=== PATIENT | male | born 2005 | race Caucasian/White ===

== ENCOUNTER 2024-06-21 13:09 | Outpatient (AMB) | payer OTHER, SELFPAY ==
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
[2024-06-21 13:18] VITALS: BP 127/71; PULSE 74; RESP 16; TEMP 37.1; O2SAT 99; BMI 23.8
== END 2024-06-21 13:55 | disposition home or self-care (01) ==
LOC: HO.HMCFM 13:09
PROVIDERS: PCP Nurse Practitioner Family; Visit Provider Nurse Practitioner Family
DX: Z00.00 Encounter for general adult medical examination without abnormal findings (principal)

== ENCOUNTER → 2024-06-21 13:09 | Outpatient (BNVA) | payer OTHER, SELFPAY | PROVIDERS: PCP Nurse Practitioner Family; Visit Provider Nurse Practitioner Family | DX: Z00.00 Encounter for general adult medical examination without abnormal findings (principal) | CPT/HCPCS: 96127; 99385 ==

== ENCOUNTER 2024-06-22 08:42 | Outpatient (REF) | payer OTHER, SELFPAY ==
[2024-06-22 11:02] LABS: MANUAL DIFF FLAG NO
[2024-06-22 11:15] LABS: Basophils Percent Auto 0.3 % (0-2); Eosinophils Absolute Auto 0.1 X10*3/uL (0.0-0.4); Eosinophils Percent Auto 2.3 % (0-4); Hematocrit 43.7 % (42.0-52.0); Hemoglobin 14.9 g/dl (14.0-18.0); Imm Gran Abs Auto 0.02 X10*3/uL (0.00-0.03); Imm Gran Pct Auto 0.3 % (0.0-0.4); Lymphocytes Absolute Auto 2.5 X10*3/uL (1.2-4.9); Lymphocytes Percent Auto 40.4 % (20-40); Mean Corpuscular HGB Conc 34.1 g/dl (31.0-36.0); Mean Corpuscular Hemoglobin 29.4 pg (27.0-33.0); Mean Corpuscular Volume 86.4 fL (80.0-98.0); Monocytes Absolute Auto 0.5 X10*3/uL (0.1-1.2); Neutrophils Percent Auto 48.7 % (45-73); Platelet Count 309 X10*3/uL (160-400); Red Blood Count 5.06 X10*6/uL (4.60-5.80); Red Cell Distribution Width 12.7 % (11.0-16.0); White Blood Count 6.1 X10*3/uL (4.8-10.8)
[2024-06-22 11:21] LABS: Appearance Urine Clear; Color Urine Yellow; Glucose Urine UA Negative (Negative); Leukocyte Esterase Urine Negative (Negative); Nitrite Urine Negative (Negative); Specific Gravity - Urine 1.025 (1.005-1.025); Urine Blood Negative (Negative); Urine Ketones Trace mg/dL (Negative); Urine Protein Negative (Neg-Trace)
[2024-06-22 11:48] LABS: Alanine Aminotransferase 54 U/L (0-40); Albumin Level 4.2 g/dL (3.5-5.0); Alkaline Phosphatase 111 U/L (39-117); Anion Gap 8 (12-20); Aspartate Amino Transferase 32 U/L (5-37); Bilirubin Total 0.4 mg/dL (0.0-1.0); Blood Urea Nitrogen 13 mg/dL (9-16); Calcium 9.5 mg/dL (8.4-10.2); Carbon Dioxide 29 mmol/L (22-29); Chloride 107 mmol/L (96-108); Cholesterol 193 mg/dL (<200); Estimated Glomerular Filt Rate > 60; Glucose Fasting 85 mg/dL (60-99); HDL Cholesterol 53 mg/dL (>40); LDL Cholesterol Calculated 127 mg/dL (<100); Potassium 4.3 mmol/L (3.3-5.1); Sodium 140 mmol/L (135-145); TSH reflex Free T4 0.68 uIU/mL (0.32-4.0); Total Protein 6.8 g/dL (6.5-8.0); Triglycerides 69 mg/dL (<150); Vitamin D 25-OH Total 70.8 ng/mL (>30)
== END 2024-06-22 08:43 | disposition home or self-care (01) ==
LOC: HO.WFDLDS 08:42
PROVIDERS: Visit Provider Nurse Practitioner Family
DX: Z00.00 Encounter for general adult medical examination without abnormal findings (principal)
CPT/HCPCS: 36415; 80053; 80061; 81003; 82306; 84443; 85025

== ENCOUNTER 2024-06-30 12:01 | Outpatient (AMB) | payer OTHER, SELFPAY ==
--- NOTE | 2024-06-30 11:56 | MHC.PC.OV ---
Intake Visit Reasons: Telehealth 1-3 wks labs review Intake Note: Follow up to talk about [facility] form. Cottrell Operator Required: No Allergies No Known Allergies Allergy (Verified 06/30/24 12:05) Tobacco use date assessed: 06/30/24 Dental Screening Dental Screen Date: 06/21/24 HPI HPI Comments History of Present Illness Details 18-year-old male presents for telehealth visit for review of recent lab results. He offers no complaints and denies acute symptoms at this time. Informed that reviewed of paperwork from the [employer] indicates that it was noted that he experienced a seizure, syncope, or any other type of episode of altered consciousness which may interfere with the safe operation of a vehicle. Therefore, further tests and referrals are needed to rule out substance or alcohol abuse and seizure or epilepsy. UTox, blood ethanol, peth tests will be ordered. He will be referred to Neurology for further workup. [facility] Surgical History (Updated 06/21/24 @ 13:24 by Sola Strickland MA) History of surgery on lower extremity Social History Housing: House Patient Tobacco Use Status: Never used Tobacco e-Cigarette/Vaping Use: Never Used Second Hand Smoke Exposure: No service: No Current occupational status: student Cognitive needs: No Hearing needs: No Vision needs: No Questionnaire PHQ-9 Over the last 2 weeks, how often have you been bothered by any of the following problems? 1. Little interest or pleasure in doing things: not at all 2. Feeling down, depressed, or hopeless: not at all 3. Trouble falling or staying asleep, or sleeping too much: not at all 4. Feeling tired or having little energy: not at all 5. Poor appetite or overeating: not at all 6. Feeling bad about yourself - or that you are a failure or have let yourself or your family down: not at all 7. Trouble concentrating on things, such as reading the newspaper or watching television: not at all 8. Moving or speaking so slowly that other people could have noticed. Or the opposite - being so fidgety or restless that you have been moving around a lot more than usual: not at all 9. Thoughts that you would be better off or of hurting yourself in some way: not at all Total score: 0 Depression Screening Interpretation: Negative Depression Screening Done: Yes 82801 - PHQ-9 Billing: Yes Source: Developed by Drs. Jim Frost, Bianca Bhatia, Venkatesh Kaiser and colleagues, with an educational jannette from [employer]. Thrive Questionnaire Date Thrive assessed: 06/21/24 I am a: Patient What is your living situation today?: I have a steady place to live Within the past 12 months, did the food you bought not last and you didn't have the money to get more?: Never true Within the past 12 months, did you worry whether your food would run out before you got money to buy more?: Never true Do you have trouble paying for medicines?: No Do you have trouble getting transportation to medical appointments?: No Do you have trouble paying your heating and electricity bill?: No Do you have trouble taking care of your child, family member or friend?: No Do you have trouble with day-to-day activities such as bathing, preparing meals, shopping, managing finances, etc.?: No Are you currently unemployed and looking for a job?: No Are you interested in more education?: No Please select the resources that you would like help with: None Currently or been in a relationship where the following occur: I choose not to answer THRIVE Score: 0 AUDIT C Alcohol Use Questionnaire (AUDIT-C) 3. How often do you have six or more drinks on one occasion?: Never Total Score: 0 SOTERO-7 AMB Questionnaire SOTERO-7 Date SOTERO - 7 assessed: 06/30/24 Feeling nervous, anxious, or on edge: 0 = Not at all Not being able to stop or control worryin = Not at all Worrying too much about different things: 0 = Not at all Trouble relaxin = Not at all Being so restless that it is hard to sit still: 0 = Not at all Becoming easily annoyed or irritable: 0 = Not at all Feeling afraid as if something awful might happen: 0 = Not at all Total SOTERO-7 score (0-4 normal; 5-9 mild; 10-14 moderate; 15-21 severe): 0 Source: Developed by Drs. Jim Frost, Venkatesh Soto and colleagues, with an educational jannette from [employer]. SOTERO-7 Assessment Billing SOTERO-7 Assessment Tool: SOTERO-7 Assessment 66456 Physical exam (Primary Care) Tobacco/Smoking Status: Tobacco use Status Tobacco use date assessed 06/30/24 06/30/24 12:00 Patient Tobacco Use Status Never used Tobacco 06/30/24 12:00 e-Cigarette/Vaping Use Never Used 06/30/24 12:00 PHQ-9: PHQ-9 Score PHQ-9: Total score 0 06/30/24 12:44 Depression Screening Interpretation: Negative Thrive Assessment: Date of Thrive Assessment Date Thrive assessed 06/21/24 06/30/24 12:00 Currently or been in a relationship where the following occur: I choose not to answer Telehealth Telehealth Telehealth Platform: Telephone Location of provider rendering services: practice address Location of patient: address on file Patient Identification confirmed using: Name, : Yes Telehealth method: voice only Patient verbally consented to treatment: Yes Patient verbally consented to billing insurance company: Yes Patient informed of any privacy concerns related to visit: Yes Coding Level of Care Code Tele Est Pt Level 3 (77696) Diagnoses Elevated LDL cholesterol level E78.00 Elevated ALT measurement R74.01 History of syncope Z87.898 Additional Codes SOTERO-7 Assessment Billing - SOTERO-7 Assessment Tool: SOTERO-7 Assessment 03857 ([id number]) PHQ-9 - 14669 - PHQ-9 Billing: Yes ([id number]) Time Spent (min) 20 Assessment & Plan Assessment & Plan (1) Elevated LDL cholesterol level: Code(s): E78.00 - Pure hypercholesterolemia, unspecified Category: Medical Plan: Recent LDL level is slightly elevated, 127. Advised to limit foods high in saturated fat and avoid foods high in trans fat. Routine exercise encouraged. Fast for 10-12 hours, may drink water, and perform fasting blood work 2-3 days before next visit. Follow-up for telehealth visit for labs review in 2 months. Return sooner with symptoms or concerns. Verbalized understanding and agreed with the plan. (2) Elevated ALT measurement: Code(s): R74.01 - Elevation of levels of liver transaminase levels Category: Medical Plan: Recent ALT level is slightly elevated, 54. Healthy diet, including low-fat encouraged. Encouraged to exercise routinely. Will recheck liver panel in 2 months. Verbalized understanding and agreed with the plan. (3) History of syncope: Code(s): Z87.898 - Personal history of other specified conditions Category: Medical Plan: UTox, DCM, and ethanol, and PEth labs ordered. Referred to [facility]. Orders: Orders Lipid Panel 2 Months E78.00 - Pure hypercholesterolemia, unspecified Liver Panel 2 Months R74.01 - Elevation of levels of liver transaminase levels Drug Screen Urine Today Z87.898 - Personal history of other specified conditions Ethanol Today Z87.898 - Personal history of other specified conditions Other Ref Test - [facility] Today Z87.898 - Personal history of other specified conditions Opiates GCMS Expanded, Ur Today Z87.898 - Personal history of other specified conditions Referrals Neurology Referral Z87.898 - Personal history of other specified conditions
--- OUTSIDE RECORDS SUMMARY | 2024-06-30 13:59 | XMS_ITS | Data Portability ---
Author Organization [place] - [facility], Allergy Address [address] [place] [phone] Care Team Providers Care Sound Equipment Mechanic Name Role Phone DEB DOMINGUEZ Primary Care Provider Assessment Encounter Date Assessment Date Assessment LastModified by Organization Details LastModified Time 06/05/2024 06/05/2024 1. Nasal obstruction 2. Nasal septal deviation 3. Acquired nasal deformity 4. Inferior turbinate hypertrophy Given these findings, we discussed the option of septorhinoplasty with inferior turbinate reduction. History and physical exam confirm the presence of functional nasal obstruction secondary to septal deviation and inferior turbinate hypertrophy. Conservative medical management has failed, and septoplasty alone will not alleviate the obstruction therefore I would proceed with septorhinoplasty with inferior turbinate reduction with possible auricular cartilage grafting and costal cartilage grafting. The nasal obstruction is significant and impacts daily living; there it is medically warranted. We discussed the risks, benefits and alternatives of nasal surgery. The risks include, but are not limited to: bleeding, infection, columellar scar, failure to resolve symptoms, septal perforation, residual external nasal deformity, irregularities in the nasal contour, nasal skin and or teeth numbness and need for further surgery.? ? ? If costal cartilage is required, this would also incur a risk of pneumothorax. The patient understands the risks and benefits of the procedure and would like to proceed. 5. External nasal deformity We also discussed his nasal dorsum - he has a hump with leftward deviaion. Any changes here would be cosmetic in nature. - Quote given today Photo Consent: For clinical purposes, photographs were taken of the patient. Written consent was obtained indicating all photos are to be stored securely, and used and managed by Dr. New. [id number] Not available 06/05/2024 12:37:17 Plan of Treatment Reminders Order Date Submit Date Provider Last Modified By Organization Details Last Modified Time Details Appointments SURGERY 180 2024 11:30A M DAIJA NEW MD Not available Not available Not available Post Op 2024 03:00P M JASMIN RILEY PA-C Not available Not available Not available Lab None recorded. Referral None recorded. Procedures None recorded. Surgeries septorhin oplasty (SURG) 2024 025 [email or web address] Not available 06/05/2024 12:41:02 Imaging None recorded. Medication Orders None recorded. Patient TargetsNo targets recorded. Patient InstructionsNo instructions recorded. Reason for Referral None Reported. Problems Name Problem SNOMED Code Status Onset Date Resolution Date Notes Provider Name and Address Organization Details Recorded Time Deviated nasal septum 008775860 Active 2014 Deviated nasal septum; Note: Date Diagnosed : 01/03/2015 12:56 PM (J34.2) Not Available [facility] 4 03:31:18 Nasal obstructio n 202038230 Active 2024 DAIJA NEW MD [address],[place] [address], [place], [phone] , [facility] 5 12:36:27 Acquired deformity of nose 20218696 Active 2024 DAIJA NEW MD [address] [place] [address],[place] [address], [place], [address] , [facility] 5 12:36:33 Hypertroph y of nasal turbinates 07787454 Active 2024 DAIJA NEW MD [address],[place] [address], [place], [address] , [facility] 5 12:37:06 Problem Notes None recorded. Medical Equipment None Reported. Allergies Allergen ID Allergen Name Allergen Category Reaction Reaction Severity Criticality Documentation Date Start Date Code Code System Note Provider Name and Address Organization Details Recorded Time 035692 Substance with sulfonami de structure and antibacte rial mechanism of action (substanc e) medicatio n other Not available Not available 08/10/2023 86293 8003 SNOMED React ion: unkno wn, unspe cifie d;; Not Available [facility] 01:24:41 Medications Name Sig Start Date Stop Date Status Note LastModified by Organization Details LastModified Time Epi E-Z Pen 0.3 mg/0.3 mL injecti on, auto-in jector Take by injection route. active Not Available Not Available No t Available Vitals Date Recorded Body height Body mass index (BMI) Percentile per age and sex Body weight Provider Name and Address Organization Details Last Updated DateTime 06/05/2024 171.45 cm 54 % 80374.86 g Teresa Murphy [facility] 06/05/2024 09:53:04 Date Recorded Body height Body mass index (BMI) Percentile per age and sex Body mass index (BMI) Body weight Provider Name and Address Organization Details Last Updated DateTime 04/13/2024 171.45 cm 55 % 23.1 kg/m2 34720.86 g Britney Tierney [facility] 04/13/2024 14:58:49 Social History None recorded. Functional Status None recorded. Mental Status None recorded. Family History Nothing Reported. Medical History No medical history recorded. Past Encounters Encounter ID Performer Location Encounter Start Date Encounter Closed Date Diagnosis/Indication Diagnosis SNOMED-CT Code Diagnosis ICD10 Code Diagnosis Note [id number] ALEXSANDRA CLARK MD [facility] [address] [address] 04/13/2024 14:16:44 04/13/2024 15:42:32 Deviated nasal septum 107643145 J34.2 Patient has a severe leftward deviated septum obstructin g most of the airflow on the left side, including a caudal deviation. I think he would benefit from surgical interventi on; I would like him to see one of my plastic surgery colleagues given the extent of the deviation and his history of trauma. All questions answered. [id number] DAIJA NEW MD [facility] [address] [address] 06/05/2024 09:47:35 06/05/2024 15:30:25 Nasal obstruction 685060666 J34.89 Deviated nasal septum 12 3818988 J34.2 Acquired d eformity of nose 07511777 M95.0 Hypertroph y of nasal turbinates 10154617 J34.3 Health Concerns Section Related Observation LastModified by Organization Detai ls LastModified Time None Recorded Concern Status LastModified by Organization Details LastModified Time None Recorded Advance Directives Directive None Recorded Payers Encounter Date Sequence Insurance Name Policy Number Policy Ascencio Covered Member ID Ascencio Member ID Guarantor Name 04/13/2024 1 [facility] [employer] (HMO) [id number] Mary Yevseyeva [id number] Mary Yevseyeva 06/05/2024 1 [facility] [employer] (H[employer]) [id number] Mary Yevseyeva [id number] Mary Yevseyeva Notes Date Note Type Note Provider Name and Address Organization Details Recorded Time 5 text/html 18 yo M presents with trouble breathing through the nose, primarily on the left. No sinus infections, no seasonal allergies Had nasal trauma about 10 years ago, saw , recommended to have evaluation as a teenager. No improvement with medical management. ALEXSANDRA CLARK MD [address] [place] [address], [phone], [facility] - [facility] 04/22/2024 15:19:00 5 text/html On a scale of 1 to 10, with 1 being the worst and 10 being the best, nasal breathing on each side is scored as follows:Right: 8/10Left: /10? ? ?Associated symptoms: mild clear dischargeMedications trialed: prior medications have not workedHistory of seasonal allergies: noHistory of prior nasal trauma: trauma when he was 4History of recurrent, acute, or chronic sinusitis: noHistory of prior nasal surgery: noPrior intranasal drug use: no No smoking vaping or marijuana use.He is bothered by the aesthetics of his nose - the dorsal hump and deviation of the dorsum to the left. DAIJA NEW MD [address] [place] [address],[address], [address], [facility] - [facility] 06/05/2024 12:38:07
--- OUTSIDE RECORDS SUMMARY | 2024-06-30 13:59 | XMS_ITS | Clinical Summary ---
Author Organization [facility] [address] [facility] Building Address [address] [place] [address] Phone Care Team Providers Care Filler Operator Name Role Phone Lary Medina MD Primary Care Provider [phone] Social History Tobacco Use Types Packs/Day Years Used Date Smoking Tobacco: Never Assessed Sex and Gender Information Value Date Recorded Sex Assigned at Not on file Legal Sex Male 1:56 PM EDT Gender Identity Not on file Sexual Orientation Not on file Plan of Treatment Upcoming Encounters Date Type Department Care Team (Late st Contact Info) Description 10/11/2024 9:00 AM EDT Office Visit Internal Medicine - [address] [phone] Lary Medina MD [address] [place] [address] Health Maintenance Due Date Last Done Comments Varicella Vaccines (1 of 2 - 13+ 2-dose series) 2017 HPV Vaccines (1 - Male 3-dos e series) 11/28/2019 Meningococcal B Vacine (1 of 2 - Standard) 2020 COVID-19 Vaccine (1 - 2023-2 5 season) 2023 DTaP,Tdap,and Td Vaccines (1 - Tdap) 11/28/2023 Hepatitis B Vaccines (1 of 3 - 19+ 3-dose series) 11/28/2023 Influenza Vaccine (#1) 2023 Annual Well Child Visit (3-2 1 years old) 06/19/2024 Depression Screening 06/19/2024 HIV Screening 06/19/2024 Hepatitis C Screening 06/19/2024 Social Influencers of Health Screening 06/19/2024 HIB Vaccines Aged Out No longer eligi ble based on patient's age to complete this topic Hepatitis A Vaccines Aged Out No long er eligible based on patient's age to complete this topic IPV Vaccines Aged Out No longer eligi ble based on patient's age to complete this topic MMR Vaccines Aged Out No longer eligi ble based on patient's age to complete this topic Meningococcal ACWY Vaccine Aged Out N o longer eligible based on patient's age to complete this topic Pneumococcal Vaccine: Pediat rics (0 to 5 Years) and At-Risk Patients (6 to 64 Years) Aged Out No longer eligible b ased on patient's age to complete this topic RSV Immunization Patients Un hugh 20 months Aged Out No longer eligible b ased on patient's age to complete this topic Insurance [facility] Care Teams Filler Operator Relationship Specialty Start Date End Date Lary Medina MD [address] [place] [phone] PCP - General Internal Medicine 06/19/24
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
--- OUTSIDE RECORDS SUMMARY | 2024-06-30 13:59 | XMS_ITS | Encounter Summary ---
Author Organization [facility] Address [address] [place] [address] Phone Care Team Providers Care Sample Checker Name Role Phone Jim Paul MD Primary Care Provider [phone] Encounter Details Date Type Department Care Team (Late st Contact Info) Description 08/15/2017 Conversion Encounter [facility] [address] [place] [address] Jim Paul MD [address] [place] [address] Social History Tobacco Use Types Packs/Day Years Used Date Smoking Tobacco: Never Assessed Sex and Gender Information Value Date Recorded Sex Assigned at Not on file Legal Sex Male 6:10 PM EDT Gender Identity Not on file Sexual Orientation Not on file documented as of this encounter Plan of Treatment Not on file documented as of this encounter Visit Diagnoses Not on filedocumented in this encounter Care Teams Sample Checker Relationship Specialty Start Date End Date Jim Paul MD [address] [place] [address] PCP - General 08/04/17 06/20/24 documented as of this encounter
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
== END 2024-06-30 16:06 | disposition home or self-care (01) ==
LOC: HO.HMCFM 12:01
PROVIDERS: PCP Nurse Practitioner Family; Visit Provider Nurse Practitioner Family
DX: E78.00 Pure hypercholesterolemia, unspecified (principal); R74.01 Elevation of levels of liver transaminase levels; Z87.898 Personal history of other specified conditions

== ENCOUNTER → 2024-06-30 12:01 | Outpatient (BNVA) | payer OTHER, SELFPAY | PROVIDERS: PCP Nurse Practitioner Family; Visit Provider Nurse Practitioner Family | DX: E78.00 Pure hypercholesterolemia, unspecified (principal); R74.01 Elevation of levels of liver transaminase levels; Z87.898 Personal history of other specified conditions | CPT/HCPCS: 96127 ==

== ENCOUNTER 2024-07-07 09:10 | Outpatient (REF) | payer OTHER, SELFPAY ==
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
--- OUTSIDE RECORDS SUMMARY | 2024-07-07 09:30 | XMS_ITS | Clinical Summary ---
Author Organization [facility] [address] [facility] Building Address [address] [place] [address] Phone Care Team Providers Care Speech And Hearing Director Name Role Phone Lary Medina MD Primary Care Provider [phone] Social History Tobacco Use Types Packs/Day Years [...] AM EDT Office Visit Internal Medicine - [address] [phone] Lary Medina MD [address] [place] [address] Health Maintenance Due Date Last Done Comments Varicella Vaccines (1 of 2 - 13+ 2-dose series) 2017 HPV Vaccines (1 - Male 3-dos e series) 11/28/2019 Meningococcal B Vaccine (1 o f 2 - Standard) 2020 COVID-19 Vaccine (1 [...] patient's age to complete this topic Insurance [facility] [place] [address] Care Teams Speech And Hearing Director Relationship Specialty Start Date End Date Lary Medina MD [address] [place] [phone] PCP - General Internal Medicine 06/19/24
--- OUTSIDE RECORDS SUMMARY | 2024-07-07 09:30 | XMS_ITS | Data Portability ---
Author Organization [place] [facility], Allergy Address [address] [place] [phone] Care Team Providers Care Analytics Analyst Name Role Phone DEB DOMINGUEZ Primary Care [...] and used and managed by Dr. New. [phone] Not available 06/05/2024 12:37:17 Plan of Treatment [...] Organization Details Recorded Time Deviated nasal septum 063629539 Active 2014 Deviated nasal septum; Note: Date Diagnosed : 01/03/2015 12:56 PM (J34.2) Not Available [facility] 4 03:31:18 Nasal obstructio n 896469359 Active 2024 DAIJA NEW MD [address] [facility],[place] [address], [place], [phone] , [facility] 5 12:36:27 Acquired deformity of nose 90413998 Active 2024 DAIJA NEW MD [address] [place] [address],[place] [address], [place], [address] , [facility] 5 12:36:33 Hypertroph y of nasal turbinates 41679018 Active 2024 DAIJA NEW MD [address] [facility],[place] [address], [place], [phone] , [facility] 5 12:37:06 Problem Notes None recorded. Medical Equipment None Reported. Allergies Allergen ID Allergen Name Allergen Category Reaction Reaction Severity Criticality Documentation Date Start Date Code Code System Note Provider Name and Address Organization Details Recorded Time 580783 Substance with sulfonami de structure and antibacte rial mechanism of action (substanc e) medicatio n other Not available Not available 08/10/2023 39116 8003 SNOMED React ion: unkno wn, unspe [...] Updated DateTime 06/05/2024 171.45 cm 54 % 73934.86 g Teresa Murphy [facility] 06/05/2024 09:53:04 Date Recorded Body height Body mass index (BMI) Percentile per age and sex Body mass index (BMI) Body weight Provider Name and Address Organization Details Last Updated DateTime 04/13/2024 171.45 cm 55 % 23.1 kg/m2 37809.86 g Britney Tierney [facility] 04/13/2024 14:58:49 Social History None recorded. Functional Status None recorded. Mental Status None recorded. Family History Nothing Reported. Medical History No medical history recorded. Past Encounters Encounter ID Performer Location Encounter Start Date Encounter Closed Date Diagnosis/Indication Diagnosis SNOMED-CT Code Diagnosis ICD10 Code Diagnosis Note [id number] ALEXSANDRA CLARK MD [facility] [address] [address] 04/13/2024 14:16:44 04/13/2024 15:42:32 Deviated nasal septum 989456037 J34.2 Patient has a severe leftward deviated septum obstructin g most of the airflow on the left side, including a caudal deviation. I think he would benefit from surgical interventi on; I would like him to see one of my plastic surgery colleagues given the extent of the deviation and his history of trauma. All questions answered. [id number] DAIJA NEW MD [facility] [address] [address] 06/05/2024 09:47:35 06/05/2024 15:30:25 Nasal obstruction 337502611 J34.89 Deviated nasal septum 12 5122470 J34.2 Acquired d eformity of nose 55825024 M95.0 Hypertroph y of nasal turbinates 25876088 J34.3 Health Concerns Section Related Observation LastModified by Organization Detai ls LastModified Time None Recorded Concern Status LastModified by Organization Details LastModified Time None Recorded Advance Directives Directive None Recorded Payers Encounter Date Sequence Insurance Name Policy Number Policy Ascencio Covered Member ID Ascencio Member ID Guarantor Name 04/13/2024 1 [facility] (HMO) [id number] Mary Yevseyeva [id number] Mary Yevseyeva 06/05/2024 1 [facility] (HMO) [id number] Mary Yevseyeva [id number] Mary Yevseyeva Notes Date Note Type Note Provider Name and Address Organization Details Recorded Time 5 text/html 18 yo M presents with trouble breathing through the nose, primarily on the left. No sinus infections, no seasonal allergies Had nasal trauma about 10 years ago, saw , recommended to have evaluation as a teenager. No improvement with medical management. ALEXSANDRA CLARK MD [address] [place] [address], [phone], [facility] - [facility] 04/22/2024 15:19:00 5 text/html On a [...] dorsum to the left. DAIJA NEW MD [address] [place] [address],[address], [phone], [facility] - [facility] 06/05/2024 12:38:07
--- OUTSIDE RECORDS SUMMARY | 2024-07-07 09:30 | XMS_ITS | Encounter Summary ---
Author Organization [facility] Address [address] [place] [address] Phone Care Team Providers Care Certified Massage Therapist Name Role Phone Jim Paul MD Primary Care Provider [phone] Reason for Visit * Reason Onset Date Comments see note 06/08/2024 appt made 06/08/2024 Encounter Details Date Type Department Care Team (Late st Contact Info) Description 06/08/2024 Telephone [facility] [address] [phone] Ailyn White LPN [address] [place], [place] [phone] see note ; appt made Social History [...] Patient will be in the office to cloth picker medical release to transfer to a new [...] insurances that we take, [employer] Complete, [place], [place], [employer], and [employer]. If he can change [...] Discussed that he may need to yany sheet rock hanger to be cleared but not sure what [...] on filedocumented in this encounter Care Teams Certified Massage Therapist Relationship Specialty Start Date End Date Jim Paul MD [address] [place] [address] PCP - General 08/04/17 06/20/24 documented as of this encounter
--- OUTSIDE RECORDS SUMMARY | 2024-07-07 09:30 | XMS_ITS | Encounter Summary ---
Author Organization [facility] Address [address] [place] [address] Phone Care Team Providers Care Moto Mix Operator Name Role Phone Jim Paul MD Primary Care Provider [phone] Encounter Details Date Type Department Care Team (Late st Contact Info) Description 08/15/2017 Conversion Encounter [facility] [address] [place] [address] Jim Paul MD [address] [place] [address] Social History Tobacco Use Types Packs/Day Years [...] on filedocumented in this encounter Care Teams Moto Mix Operator Relationship Specialty Start Date End Date Jim Paul MD [address] [place] [address] PCP - General 08/04/17 06/20/24 documented as of this encounter
[2024-07-07 11:54] LABS: Ethanol < 10 mg/dL
[2024-07-07 12:10] LABS: Amphetamine Screen Urine Not Detected (Not Detect); Barbiturates, Urine Not Detected (Not Detect); Benzodiazepines Screen Urine Not Detected (Not Detect); Buprenorphine Scr Not Detected (Not Detect); Cannabinoid Screen Urine Not Detected (Not Detect); Cocaine Screen Urine Not Detected (Not Detect); Fentanyl, urine Not Detected (Not Detect); Methadone Screen, Urine Not Detected (Not Detect); Opiate Screen Urine Not Detected (Not Detect); Oxycodone Screen Urine Not Detected (Not Detect); Phencyclidine Screen Urine Not Detected (Not Detect)
[2024-07-10 10:56] LABS: Codeine, Ur NEGATIVE; Hydrocodone, Ur NEGATIVE; Hydromorphone, Ur NEGATIVE; Morphine, Ur NEGATIVE; Norhydrocodone, Ur NEGATIVE; Noroxycodone, Ur NEGATIVE; Oxycodone, Ur NEGATIVE; Oxymorphone, Ur NEGATIVE
[2024-07-13 11:44] LABS: Phosphatidylethanol 16:0-18:1 NEGATIVE; Phosphatidylethanol 16:0-18:2 NEGATIVE
== END 2024-07-07 09:11 | disposition home or self-care (01) ==
LOC: HO.WFDLDS 09:10
PROVIDERS: Visit Provider Nurse Practitioner Family
DX: Z87.898 Personal history of other specified conditions (principal)
CPT/HCPCS: 80307; 80321; 80365; G0480

== ENCOUNTER 2024-11-29 08:22 | Outpatient (AMB) | payer OTHER, SELFPAY ==
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
[2024-11-29 08:27] VITALS: BP 128/80; PULSE 88; O2SAT 100; BMI 23.2
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
--- OUTSIDE RECORDS SUMMARY | 2024-11-29 08:49 | XMS_ITS | Encounter Summary ---
Author Organization [facility] Address [address] [place] [address] Phone Care Team Providers Care Camp Nurse Name Role Phone Jim Paul MD Primary Care Provider [phone] Encounter Details Date Type Department Care Team (Late st Contact Info) Description 08/15/2017 Conversion [facility]counter [facility] [address] [place] [address] Jim Paul MD [address] [place] [address] Social History Tobacco Use Types Packs/Day Years [...] on filedocumented in this encounter Care Teams Camp Nurse Relationship Specialty Start Date End Date Jim Paul MD [address] [place] [address] PCP - General 08/04/17 06/20/24 documented as of this encounter
== END 2024-11-29 09:11 | disposition home or self-care (01) ==
LOC: HO.HSMS 08:23
PROVIDERS: PCP Nurse Practitioner Family; Visit Provider Psychiatry & Neurology Neurology
DX: Z71.1 Person with feared health complaint in whom no diagnosis is made (principal)
CPT/HCPCS: 99204

== ENCOUNTER → 2024-11-29 08:22 | Outpatient (BNVA) | payer OTHER, SELFPAY | PROVIDERS: PCP Nurse Practitioner Family; Visit Provider Psychiatry & Neurology Neurology | DX: Z13.850 Encounter for screening for traumatic brain injury (principal) | CPT/HCPCS: 99202 ==

== ENCOUNTER 2024-12-27 08:18 | Outpatient (REF) | payer OTHER, SELFPAY ==
--- OUTSIDE RECORDS SUMMARY | 2024-12-27 08:46 | XMS_ITS | Encounter Summary ---
Author Organization [facility] Address [address] [place] [address] Phone Care Team Providers Care Marriage Performer Name Role Phone Jim Paul MD Primary Care Provider [phone] Encounter Details Date Type Department Care Team (Late st Contact Info) Description 08/15/2017 Conversion Encounter [facility] [address] [place] [address] Jim Paul MD [address] [place] [address] Social History Tobacco Use Types Packs/Day Years [...] on filedocumented in this encounter Care Teams Marriage Performer Relationship Specialty Start Date End Date Jim Paul MD [address] [place] [address] PCP - General 08/04/17 06/20/24 documented as of this encounter
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
== END 2024-12-27 08:19 | disposition home or self-care (01) ==
LOC: HO.NEURO 08:18
PROVIDERS: PCP Nurse Practitioner Family; Visit Provider Psychiatry & Neurology Neurology
DX: Z87.898 Personal history of other specified conditions (principal)
CPT/HCPCS: 95816

== ENCOUNTER → 2024-12-27 09:27 | Outpatient (BNV) | payer OTHER, SELFPAY | PROVIDERS: PCP Nurse Practitioner Family; Visit Provider Psychiatry & Neurology Neurology | DX: Z76.5 Malingerer [conscious simulation] (principal) | CPT/HCPCS: 95816 ==

== ENCOUNTER 2025-02-14 15:29 | Outpatient (AMB) | payer OTHER, SELFPAY ==
[2025-02-14 15:30] VITALS: BP 122/78; PULSE 96; O2SAT 99; BMI 24.9
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
--- OUTSIDE RECORDS SUMMARY | 2025-02-15 04:02 | XMS_ITS | Continuity of Care Document ---
Author Organization [place] - [facility], [facility] Address [address] [place] [address] Care Team Providers Care Sports Team Manager Name Role Phone DEB DOMINGUEZ Primary Care Provider [phone] Assessment Encounter Date Assessment Date Assessment LastModified by Organization Details LastModified Time 11/20/2024 11/20/2024 18 year old male , s/p septorhinoplasty with inferior turbinate reduction performed 11/01/[address] New, presents for reevaluation of epistaxis. Patient had a left Rhino Rocket placed at [facility] ED on 11/04/24 for severe epistaxis, which was removed in the office at the previous visit. Septum and bilateral turbinates appear to be healing well overall. No evidence of active epistaxis or septal hematoma. Recommend continued use of daily saline irrigation to promote healing and keep the nasal mucosa moist. Follow up with Dr. New for routine postoperative assessment. Otherwise, I would be happy to see him in the interim for any new or worsening concerns. All questions were answered. [email or web address] Not available 11/20/2024 17:49:27 Plan of Treatment Reminders Order Date Submit Date Provider Last Modified By Organization Details Last Modified Time Details Appointments Establish ed 20 2025 08:40A M DAIJA NEW MD Not available Not available Not available Lab None recorded. Referral None recorded. Procedures None recorded. Surgeries None recorded. Imaging None recorded. Medication Orders None recorded. Patient TargetsNo targets recorded. Patient InstructionsNo instructions recorded. Reason for Referral None Reported. Problems Name Problem SNOMED Code Status Onset Date Resolution Date Notes Provider Name and Address Organization Details Recorded Time Deviated nasal septum 079282116 Active 2014 Deviated nasal septum; Note: Date Diagnosed : 01/03/2015 12:56 PM (J34.2) Not Available [facility] 4 03:31:18 Nasal obstructio n 085664456 Active 2024 DAIJA NEW MD [address], [place], [address] , [facility] - [facility] 16:24:21 Acquired deformity of nose 19957744 Active 2024 DAIJA NEW MD [address], [place], [address] , [facility] [place] 12:36:33 Hypertroph y of nasal turbinates 14122562 Active 2024 DAIJA NEW MD [address], [place], [address] , [facility] [place] 12:37:06 Bleeding from nose 953029807 Active 2024 ALBER BARR [address], [place], [address] , [facility] 17:49:44 Problem Notes None recorded. Procedures Surgical History Date Name Laterality Status Provider Name and Address Organization Details Recorded Time 11/07/19 25 JMSNasal/Sinus Endoscopy-DEBRIDEME NT completed ALBER BARR [address] [facility], [place], [address], [facility] 11/06/2024 17:06:00 11/02/19 25 rhinoseptoplasty completed DAIJA NEW MD [address], [place], [address], [facility] 11/01/2024 07:16:22 Imaging Results None recorded. Procedure Notes None recorded. Medical Equipment None Reported. Allergies Allergen ID Allergen Name Allergen Category Reaction Reaction Severity Criticality Documentation Date Start Date Code Code System Note Provider Name and Address Organization Details Recorded Time 457939 Substance with sulfonami de structure and antibacte rial mechanism of action (substanc e) medicatio n other Not available Not available 08/10/2023 50760 8003 SNOMED React ion: unkno wn, unspe cifie d;; Not Available [facility] 01:24:41 Medications Name Sig Start Date Stop Date Status Note LastModified by Organization Details LastModified Time Nasal Dennison (oxymetazol ine) 0.05 % SPRAY 2 SPRAYS NEEDED BY INTRANASA L ROUTE FOR 3 DAYS, FOR NASAL BLEEDING. active Not Available Not Available No t Available ibuprofen 800 mg tablet Take 1 tablet every 6 hours by oral route for 7 days, for postop pain. 11/15 completed Not Available Not Available Not Available Medrol (Alberto) 4 mg tablets in a dose pack Take 1 dose pk by oral route for 5 days, for swelling as prescribe d. 11/13 completed Not Available Not Available Not Available bacitracin 500 unit/gram topical ointment APPLY 1 APPLICATI ON 3 TIMES A DAY BY TOPICAL ROUTE, FOR TO YOUR NASAL INCISION. active Not Available Not Available No t Available Epi E-Z Pen 0.3 mg/0.3 mL injection, auto-inject or Take by injection route. active Not Available Not Available No t Available acetaminoph en 500 mg tablet TAKE 2 TABLETS BY MOUTH EVERY 6 HOURS active Not Available Not Available No t Available cephalexin 500 mg tablet Take 1 tablet twice a day by oral route for 7 days. 11/15 completed Not Available Not Available Not Available oxycodone 5 mg tablet Take 1 tablet every 4 hours by oral route as needed for 7 days, for as needed for break through pain. 11/15 completed Not Available Not Available Not Available Saline Nasal 0.65 % spray aerosol TAKE 2 SPRAYS 4 TIMES A DAY BY NASAL ROUTE FOR 7 DAYS. active Not Available Not Available No t Available Vitals Date Recorded Body height Body mass index (BMI) Body mass index (BMI) [Percentile] Per age and sex Body weight Provider Name and Address Organization Details Last Updated DateTime 11/20/2024 171.45 cm 23.1 kg/m2 51 % 20155.86 g Rosalie Woodward [place] - [facility] 11/20/2024 10:30:36 Social History None recorded. Functional Status None recorded. Mental Status None recorded. Family History Nothing Reported. Medical History No medical history recorded. Past Encounters Encounter ID Performer Location Encounter Start Date Encounter Closed Date Diagnosis/Indication Diagnosis SNOMED-CT Code Diagnosis ICD10 Code Diagnosis IMO Codes Diagnosis Note [id number] ALBER BARR [facility] of [address] [address] 11/06/2024 14:30:58 11/06/2024 16:03:18 Deviated nasal septum 207530475 J34.2 Hypertroph y of nasal turbinates 67950699 J34.3 Acquired d eformity of nose 10958079 M95.0 Nasal obstruction 242230 000 J34.89 [id number] ALBER BARR [facility] of [address] [address] 11/20/2024 10:05:23 11/20/2024 10:59:10 Deviated nasal septum 018068521 J34.2 Hypertroph y of nasal turbinates 44255814 J34.3 Acquired d eformity of nose 33218856 M95.0 Nasal obstruction 213064 000 J34.89 Bleeding from nose 76282 6005 R04.0 2558 Resolved. Health Concerns Section Related Observation LastModified by Organization Detai ls LastModified Time None Recorded Concern Status LastModified by Organization Details LastModified Time None Recorded Payers Encounter Date Sequence Insurance Name Policy Number Policy Ascencio Covered Member ID Ascencio Member ID Guarantor Name 11/20/2024 1 [facility] (O) [id number] Mary Robert [id number] Mary Robert Notes Date Note Type Note Provider Name and Address Organization Details Recorded Time 11/20/2024 text/html ROS as noted in the HPI 18 year old male, s/p septorhinoplasty with inferior turbinate reduction performed 11/01/[address] New, presents for reevaluation of epistaxis. Patient had a left Rhino Rocket placed at [facility] ED on 11/04/24 for severe epistaxis, which was removed in the office at the previous visit. He has not had any recurrent nosebleeds since then, but reports slightly reduced airflow through the right nostril. ZENAIDA GOMEZ MD [address] [place] [address], [phone], [facility] - [facility] 11/21/2024 07:58:12
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
--- OUTSIDE RECORDS SUMMARY | 2025-02-15 04:02 | XMS_ITS | Encounter Summary ---
Author Organization [facility] Address [address] [place] [address] Phone Care Team Providers Care Environmental Sampling Technician Name Role Phone Jim Paul MD Primary Care Provider [phone] Encounter Details Date Type Department Care Team (Late st Contact Info) Description 08/15/2017 Conversion Encounter [facility] [address] [place] [address] Jim Paul MD [address] [place] [address] Social History Tobacco Use Types Packs/Day Years [...] on filedocumented in this encounter Care Teams Environmental Sampling Technician Relationship Specialty Start Date End Date Jim Paul MD [address] [place] [address] PCP - General 08/04/17 06/20/24 documented as of this encounter
--- OUTSIDE RECORDS SUMMARY | 2025-02-15 04:02 | XMS_ITS | Continuity of Care Document ---
Author Organization [place] - [facility], [facility] Address [address] [place] [address] Care Team Providers Care Template Clerk Name Role Phone DEB DOMINGUEZ Primary Care Provider [phone] Assessment Encounter Date Assessment Date Assessment LastModified by Organization Details LastModified Time 11/30/2024 11/30/2024 s/p septorhinoplasty with turbinate reduction on 11/01/24 Postop day 4 - had bleeding requiring rhinorocket placement this was removed no additional bleeding Reports improvement in his breathing FU 6mo Not available 11/30/2024 16:24:19 Plan of Treatment Reminders Order Date Submit Date Provider Last Modified By Organization Details Last Modified Time Details Appointments Establish ed 20 2025 08:40A M DAIJA GALINDO MD Not available Not available Not available Lab None recorded. Referral None recorded. Procedures None recorded. Surgeries None recorded. Imaging None recorded. Medication Orders None recorded. Patient TargetsNo targets recorded. Patient InstructionsNo instructions recorded. Reason for Referral None Reported. Problems Name Problem SNOMED Code Status Onset Date Resolution Date Notes Provider Name and Address Organization Details Recorded Time Deviated nasal septum 673209731 Active 2014 Deviated nasal septum; Note: Date Diagnosed : 01/03/2015 12:56 PM (J34.2) Not Available [facility] 4 03:31:18 Nasal obstructio n 757218070 Active 2024 DAIJA GALINDO MD [address] [place] [address], [facility] [place], [address] , [place] - [facility] 16:24:21 Acquired deformity of nose 48552619 Active 2024 DAIJA GALINDO MD [address] [place],[address] [facility], [place], [address] , [facility] [place] 12:36:33 Hypertroph y of nasal turbinates 56664325 Active 2024 DAIJA GALINDO MD [address] [facility] [place] [address], [place], [address] , [facility] [place] 12:37:06 Bleeding from nose 182608826 Active 2024 ALBRE BARR [address] [facility] [place] [address], [place], [address] , [facility] [place] 17:49:44 Problem Notes None recorded. Procedures Surgical History Date Name Laterality Status Provider Name and Address Organization Details Recorded Time 11/07/19 25 JMSNasal/Sinus Endoscopy-DEBRIDEME NT completed ALBER BARR [address] [facility] [place] [address], [place], [address], [facility] [place] 11/06/2024 17:06:00 11/02/19 rhinoseptoplasty completed DAIJA GALINDO MD [address] [facility] [place] [address], [place], [address], [facility] 11/01/2024 07:16:22 Imaging Results None recorded. Procedure Notes None recorded. Medical Equipment None Reported. Allergies Allergen ID Allergen Name Allergen Category Reaction Reaction Severity Criticality Documentation Date Start Date Code Code System Note Provider Name and Address Organization Details Recorded Time 936538 Substance with sulfonami de structure and antibacte rial mechanism of action (substanc e) medicatio n other Not available Not available 08/10/2023 89324 8003 SNOMED React ion: unkno wn, unspe cifie d;; Not Available [facility] 4 01:24:41 Medications Name Sig Start Date Stop Date Status Note LastModified by Organization Details LastModified Time Nasal [place] (oxymetazol ine) 0.05 % SPRAY 2 SPRAYS [...] Available Not Available No t Available Vitals None Recorded Social History None recorded. Functional Status None recorded. Mental Status None recorded. Family History Nothing Reported. Medical History No medical history recorded. Past Encounters Encounter ID Performer Location Encounter Start Date Encounter Closed Date Diagnosis/Indication Diagnosis SNOMED-CT Code Diagnosis ICD10 Code Diagnosis IMO Codes Diagnosis Note [id number] ALBER BARR [facility] of [address] [address] 11/06/2024 14:30:58 11/06/2024 16:03:18 Deviated nasal septum 831568072 J34.2 Hypertroph y of nasal turbinates 99408665 J34.3 Acquired d eformity of nose 97822256 M95.0 Nasal obstruction 633662 000 J34.89 [id number] ALBER BARR [facility] of [address] [place] [address] 11/20/2024 10:05:23 11/20/2024 10:59:10 Deviated nasal septum 348778450 J34.2 Hypertroph y of nasal turbinates 33356655 J34.3 Acquired d eformity of nose 85943850 M95.0 Nasal obstruction 211026 000 J34.89 Bleeding from nose 53519 6005 R04.0 2558 Resolved. [id number] DAIJA GALINDO MD [facility] [address] [address] 11/30/2024 15:52:07 11/30/2024 16:07:31 Nasal obstruction 805851914 J34.89 27272 Health Concerns Section Related Observation LastModified by Organization Detai ls LastModified Time None Recorded Concern Status LastModified by Organization Details LastModified Time None Recorded Payers Encounter Date Sequence Insurance Name Policy Number Policy Ascencio Covered Member ID Ascencio Member ID Guarantor Name 11/30/2024 1 [facility] (O) [id number] Mary Quoceva [id number] Mary Yevseyeva Notes Date Note Type Note Provider Name and Address Organization Details Recorded Time 11/30/2024 text/html ROS as noted in the HPI s/p septorhinoplasty with turbinate reduction on 11/01/24Postop day 4 - had bleeding requiring rhinorocket placementthis was removedno additional bleeding Reports improvement in his breathing DAIJA GALINDO MD [address] [place] [address], [address], [facility] - [facility] 11/30/2024 16:24:30
--- OUTSIDE RECORDS SUMMARY | 2025-02-15 04:02 | XMS_ITS | Data Portability ---
Author Organization [place] - [facility], Allergy Address [address] [place] [address] Care Team Providers Care Audit Director Name Role Phone ANGELICA DEB Primary Care Provider Assessment Encounter Date Assessment [...] or teeth numbness and need for further surgery. If costal cartilage is required, this would [...] securely, and used and managed by Dr. Galindo. [id number], [id number] Not available 06/05/2024 12:37:17 11/06/2024 11/06/2024 18 year old male , s/p septorhinoplasty with inferior turbinate reduction performed 11/01/[address] Galindo, presents with his mother for left nasal packing removal. Nasal packing was softened with topical lidocaine/oxymetaz oline before being deflated and evacuated from the left naris. Patient tolerated the procedure well. No evidence of a septal hematoma. Right nasal splint was partially intact and also removed without difficulty. The nasal cavities were debrided using suction via rigid nasal endoscopy. Left nasal splint is confirmed to be absent. Dorsal splint was additionally removed. Septum and bilateral turbinates appear to be generally healing well. He may begin daily saline irrigation starting today. Will plan to see him back in 2 weeks for reassessment. All questions were answered. Patient also seen and evaluated by Dr. Delgado who agrees with this plan. Not available 11/06/2024 17:08:13 11/20/2024 11/20/2024 18 year old male , s/p septorhinoplasty with inferior turbinate reduction performed 11/01/[address] Galindo, presents for reevaluation of epistaxis. Patient had a left Rhino Rocket placed at [facility] ED on 11/04/24 for severe epistaxis, which was removed in the office at the previous visit. Septum and bilateral turbinates appear to be healing well overall. No evidence of active epistaxis or septal hematoma. Recommend continued use of daily saline irrigation to promote healing and keep the nasal mucosa moist. Follow up with Dr. Galindo for routine postoperative assessment. Otherwise, I would be happy to see him in the interim for any new or worsening concerns. All questions were answered. Not available 11/20/2024 17:49:27 11/30/2024 11/30/2024 s/p septorhinoplasty with turbinate reduction [...] Organization Details Recorded Time Deviated nasal septum 437165224 Active 2014 Deviated nasal septum; Note: Date Diagnosed : 01/03/2015 12:56 PM (J34.2) Not Available [facility] 4 03:31:18 Nasal obstructio n 010378644 Active 2024 DAIJA GALINDO MD [address] [facility] [place] [address], [place], [address] , [facility] - [facility] 5 16:24:21 Acquired deformity of nose 78685789 Active 2024 DAIJA GALINDO MD [address] [place], [place] [address]on [place] [address], [place], [address] , [facility] 5 12:36:33 Hypertroph y of nasal turbinates 50098632 Active 2024 DAIJA GALINDO MD [address] [facility] [place] [address], [place], [address] , [facility] - [facility] 5 12:37:06 Bleeding from nose 122480354 Active 2024 ALBER BARR [address] [place], [place] [address]on [place],[facility], [place], [address] , [facility] - [facility] 5 17:49:44 Problem Notes None recorded. Procedures Surgical History Date Name Laterality Status Provider Name and Address Organization Details Recorded Time 11/07/19 25 JMSNasal/Sinus Endoscopy-DEBRIDEME NT completed ALBER BARR [address] [place], [place] [address]on [place],[facility], [place] , [place], [address], [place] - [facility] 11/06/2024 17:06:00 11/02/19 25 rhinoseptoplasty completed DAIJA GALINDO MD [address] [place] [address], [place], [address], [place] - [facility] 11/01/2024 07:16:22 Imaging Results None recorded. Procedure Notes None recorded. Medical Equipment None Reported. Allergies Allergen ID Allergen Name Allergen Category Reaction Reaction Severity Criticality Documentation Date Start Date Code Code System Note Provider Name and Address Organization Details Recorded Time 502956 Substance with sulfonami de structure and antibacte rial mechanism of action (substanc e) medicatio n other Not available Not available 08/10/2023 58281 8003 SNOMED React ion: unkno wn, unspe cifie d;; Not Available [facility] 4 01:24:41 Medications Name Sig Start Date Stop Date Status Note LastModified by Organization Details LastModified Time Nasal [place] (oxymetazol ine) 0.05 % SPRAY 2 SPRAYS [...] Recorded Body height Body mass index (BMI) [Percentile] Per age and sex Body mass index (BMI) Body weight Provider Name and Address Organization Details Last Updated DateTime 04/13/2024 171.45 cm 55 % 23.1 kg/m2 36766.86 g Britney Niall [facility] 04/13/2024 14:58:49 Date Recorded Body height Body mass index (BMI) [Percentile] Per age and sex Body weight Provider Name and Address Organization Details Last Updated DateTime 06/05/2024 171.45 cm 54 % 40062.86 g Teresa Murphy [facility] 06/05/2024 09:53:04 Date Recorded Body height Body mass index (BMI) [Percentile] Per age and sex Body mass index (BMI) Body weight Provider Name and Address Organization Details Last Updated DateTime 11/06/2024 171.45 cm 51 % 23.1 kg/m2 85374.86 g Rosalie Woodward [facility] 11/06/2024 14:57:34 Date Recorded Body height Body mass index (BMI) Body mass index (BMI) [Percentile] Per age and sex Body weight Provider Name and Address Organization Details Last Updated DateTime 11/20/2024 171.45 cm 23.1 kg/m2 51 % 00147.86 g Rosalie Woodward [facility] 11/20/2024 10:30:36 Social History None recorded. Functional Status None recorded. Mental Status None recorded. Family History Nothing Reported. Medical History No medical history recorded. Past Encounters Encounter ID Performer Location Encounter Start Date Encounter Closed Date Diagnosis/Indication Diagnosis SNOMED-CT Code Diagnosis ICD10 Code Diagnosis IMO Codes Diagnosis Note [id number] ALEXSANDRA CLARK MD [facility] [address] [address] 04/13/2024 14:16:44 04/13/2024 15:42:32 Deviated nasal septum 426932035 J34.2 Patient has a severe leftward deviated septum obstructin g most of the airflow on the left side, including a caudal deviation. I think he would benefit from surgical interventi on; I would like him to see one of my plastic surgery colleagues given the extent of the deviation and his history of trauma. All questions answered. [id number] DAIJA GALINDO MD [facility] [address] [address] 06/05/2024 09:47:35 06/05/2024 15:30:25 Nasal obstruction 507246264 J34.89 Deviated nasal septum 12 9552155 J34.2 Acquired d eformity of nose 86717108 M95.0 Hypertroph y of nasal turbinates 15177631 J34.3 [id number] ALBER BARR [facility] [address] [address] 11/06/2024 14:30:58 11/06/2024 16:03:18 Deviated nasal septum 460926201 J34.2 Hypertroph y of nasal turbinates 14022241 J34.3 Acquired d eformity of nose 51930306 M95.0 Nasal obstruction 018955 000 J34.89 [id number] ALBER BARR [facility] [address] [address] 11/20/2024 10:05:23 11/20/2024 10:59:10 Deviated nasal septum 411824690 J34.2 Hypertroph y of nasal turbinates 89054931 J34.3 Acquired d eformity of nose 12575781 M95.0 Nasal obstruction 381937 000 J34.89 Bleeding from nose 67440 6005 R04.0 2558 Resolved. [id number] DAIJA GALINDO MD [facility] [address] [address] 11/30/2024 15:52:07 11/30/2024 16:07:31 Nasal obstruction 979003398 J34.89 [id number] Health Concerns Section Related Observation LastModified by Organization Detai ls LastModified Time None Recorded Concern Status LastModified by Organization Details LastModified Time None Recorded Advance Directives Directive None Recorded Payers Insurance Date Sequence Insurance Name Policy Number Policy Ascencio Covered Member ID Ascencio Member ID Guarantor Name 12/18/2024 1 [facility] Fernandez Quintero [id number] Mary Kumarieva 04/13/2024 2 [facility] (MEDICAID HMO) [id number] Marycarlos Delvalleeyeva [id number] Mary Yebrigideyeva 12/18/2024 1 [facility] (MEDICAID REPLACEMENT - HMO) [place]ILD[place] Fernandez Quintero [id number] Mary Yebrigideyeva 12/03/2024 1 [facility] (HMO) [id number] Mary Yebrigideyeva [id number] Mary Yevseyeva 12/18/2024 1 [place] [facility] Fernandez Quintero [id number] Mary Yebrigideyeva 11/06/2024 2 *SELF PAY* Ly udmisusan Yebrigideyeva 12/18/2024 1 [place] [facility] Fernandez Quintero [id number] Mary Yebrigideyeva Notes Date Note Type Note Provider Name and Address Organization Details Recorded Time 5 text/html 18 yo M presents with trouble breathing through the nose, primarily on the left. No sinus infections, no seasonal allergies Had nasal trauma about 10 years ago, saw , recommended to have evaluation as a teenager. No improvement with medical management. ALEXSANDRA CLARK MD [address] [place] [address], [phone], [facility] - [facility] 04/22/2024 15:19:00 5 text/html ROS as noted in the HPI On a scale of 1 to 10, with 1 being the worst and 10 being the best, nasal breathing on each side is scored as follows:Right: 8/10Left: ssociated symptoms: mild clear dischargeMedications trialed: prior medications [...] of the dorsum to the left. DAIJA GALINDO MD [address] [facility] [place] [address], [place], [address], [facility] 06/05/2024 12:38:07 5 text/html ROS as noted in the [facility] 18 year old male, s/p septorhinoplasty with inferior turbinate reduction performed 11/01/[address] Galindo, presents with his mother for left nasal packing removal. Patient reports an episode of epistaxis from the left nostril after mowing the lawn on 11/04/24. He was seen at [facility] ED the same day and had his left nasal splint removed prior to insertion of the Rhino Rocket. Right nasal splint remained in place, but is in the process of migrating out. Patient continues to endorse mild discomfort from the nasal packing. No recurrent nosebleeds since then. Hong Delgado DO [address] [facility] [place], [address], [facility] 11/07/2024 12:31:11 5 text/html ROS as noted in the [facility] 18 year old male, s/p septorhinoplasty with inferior turbinate reduction performed 11/01/[address] Galindo, presents for reevaluation of epistaxis. Patient had a left Rhino Rocket placed at [facility] ED on 11/04/24 for severe epistaxis, which was removed in the office at the previous visit. He has not had any recurrent nosebleeds since then, but reports slightly reduced airflow through the right nostril. HONG GOMEZ MD [address] [facility] [place] [address], [place], [address], [facility] 11/21/2024 07:58:12 5 text/html ROS as noted in the [facility] s/p septorhinoplasty with turbinate reduction on 11/01/24Postop day 4 - had bleeding requiring rhinorocket placementthis was removedno additional bleeding Reports improvement in his breathing DAIJA GALINDO MD [address] [place] [address], [place], [address], [facility] - [facility] 11/30/2024 16:24:30
== END 2025-02-15 16:18 | disposition home or self-care (01) ==
LOC: HO.HSMS 15:30
PROVIDERS: PCP Nurse Practitioner Family; Visit Provider Psychiatry & Neurology Neurology
DX: Z76.5 Malingerer [conscious simulation] (principal)
CPT/HCPCS: 99214

== ENCOUNTER → 2025-02-14 15:29 | Outpatient (BNVA) | payer OTHER, SELFPAY | PROVIDERS: PCP Nurse Practitioner Family; Visit Provider Psychiatry & Neurology Neurology | DX: Z02.89 Encounter for other administrative examinations (principal); Z87.828 Personal history of other (healed) physical injury and trauma | CPT/HCPCS: 99212 ==